=== PATIENT | male | born 1985 | race Caucasian/White ===

== ENCOUNTER 2019-08-19 09:28 | Emergency (ER) | payer MEDICAID ==
[~2019-08-19] VITALS: Ht 167.6 cm; Wt 70.5 kg
[2019-08-19 09:32] VITALS: BP 143/92
== END 2019-08-19 12:41 | disposition home or self-care (01) ==
LOC: ER 09:29
DX: J02.8 Acute pharyngitis due to other specified organisms (principal); B97.89 Other viral agents as the cause of diseases classified elsewhere; H61.21 Impacted cerumen, right ear
CPT/HCPCS: 87081; 87880; 99283